=== PATIENT | female | born 1995 | race Caucasian/White ===

== ENCOUNTER 2016-12-18 22:26 | Emergency (ER) | payer OTHER ==
[~2016-12-18] VITALS: Ht 165.1 cm; Wt 108.2 kg
[~2016-12-18 22:26] MED LIST: LEVO1TAB29 PO
[2016-12-18] MEDS ORDERED: SODIUM CHLORIDE 0.9% 1,000ML IVBOLUS ONE (23:00)
[2016-12-18] MEDS ORDERED: SODIUM CHLORIDE FLUSH 10ML SYR IVF ONE (23:00)
[2016-12-18] MEDS ORDERED: MORPHINE SULFATE 4 MG/ML, 1ML IVPush PRN (23:00)
[2016-12-18 23:25] LABS: ASPARTATE AMINO TRANSFERASE 77 U/L (15-37); BLOOD UREA NITROGEN 9 mg/dL (7-18)
[2016-12-19] MEDS ORDERED: OMNIPAQUE 350 MG/ML, 100ML BOTTLE ONE (01:21)
[2016-12-19 02:14] VITALS: BP 112/62
== END 2016-12-19 02:17 | disposition home or self-care (01) ==
LOC: ED 22:47
DX: N83.02 Follicular cyst of left ovary (principal)
CPT/HCPCS: 36415; 74177; 76830; 80053; 81003; 84703; 85025; 96360; 96361; 99285; J7030; Q9967

== ENCOUNTER 2018-01-25 10:47 | Inpatient (IN) | payer OTHER ==
[~2018-01-25] VITALS: Ht 165.1 cm; Wt 108.2 kg
[2018-01-25 11:34] VITALS: BP 161/74
[2018-01-25] MEDS ORDERED: PREN1TAB10 PO (11:58)
[2018-01-25] MEDS ORDERED: ACET-76 PO (11:59)
[2018-01-25 12:03] LABS: MICROSCOPIC INDICATED
[2018-01-25 12:55] LABS: BASOPHILS # (AUTO) 0.02 x10^3/uL (0-0.1); BASOPHILS % (AUTO) 0 % (0-1); EOSINOPHILS # (AUTO) 0.06 x10^3/uL (0-0.4); EOSINOPHILS % (AUTO) 1 % (1-7); LYMPHOCYTES # (AUTO) 1.76 x10^3/uL (1-3.4); LYMPHOCYTES % (AUTO) 22 % (22-44); MD NO; MEAN CORPUSCULAR HGB CONC 33.9 g/dL (32.4-35.8); MEAN CORPUSCULAR VOLUME 94.3 fL (80-100); MEAN PLATELET VOLUME 8.5 fL (7.4-10.4); MONOCYTES # (AUTO) 0.49 x10^3/uL (0.2-0.8); MONOCYTES % (AUTO) 6 % (2-9); NEUTROPHILS # (AUTO) 5.84 x10^3/uL (1.8-6.8); NEUTROPHILS % (AUTO) 71 % (42-75); PLATELET COUNT 300 x10^3/uL (130-400); RED BLOOD COUNT 4.27 x10^6/uL (3.82-5.3); RED CELL DISTRIBUTION WIDTH 14.4 % (9.6-15.2)
[2018-01-25 12:59] LABS: CLUE CELLS NONE SEEN (NONE SEEN); WET PREP WBCS NONE SEEN (FEW)
[2018-01-25 13:05] LABS: CREATININE,URINE RANDOM 88.8 mg/dL
[2018-01-25 13:09] LABS: ALANINE AMINOTRANSFERASE 83 U/L (12-78); ALBUMIN 2.7 g/dL (3.4-5.0); ANION GAP 8 mmol/L (5-15); BILIRUBIN, DIRECT 0.2 mg/dL (0.1-0.2); CALCIUM 9.5 mg/dL (8.5-10.1); CHLORIDE 110 mmol/L (98-107); CREATININE 0.56 mg/dL (0.55-1.02)
[2018-01-25 13:11] LABS: ALKALINE PHOSPHATASE 279 U/L (45-117); BILIRUBIN,TOTAL 0.3 mg/dL (0.2-1.0); TOTAL PROTEIN 7.1 g/dL (6.4-8.2)
[2018-01-25] MEDS ORDERED: OXYTOCIN 30U/ 0.9% NaCL 500ML 500 ML ONE (13:58)
[2018-01-25] MEDS ORDERED: MAGNESIUM SULF. PMX 20GM/500ML 0 ML IV ONE (13:58)
[2018-01-25] MEDS ORDERED: NEWBORN KIT ONE (13:58)
[2018-01-25] MEDS ORDERED: MISOPROSTOL 25 MCG TABLET ONE ×2 (13:59→14:36)
[2018-01-25] MEDS ORDERED: D5%-LACTATED RINGERS 1,000 ML IV SCH (14:26)
[2018-01-25] MEDS ORDERED: OXYTOCIN 30U/ 0.9% NaCL 500ML 500 ML IV ONE (14:26)
[2018-01-25] MEDS ORDERED: MISOPROSTOL 25 MCG TABLET VG PRN (14:30)
[2018-01-25] MEDS ORDERED: SODIUM CITRATE/CITRIC ACID 30 ML UDC PO PRN (14:30)
[2018-01-25] MEDS ORDERED: FENTANYL PF 100 MCG/2ML IVPush PRN (14:30)
[2018-01-25] MEDS ORDERED: TERBUTALINE 1 MG/ML, 1ML IVPush PRN (14:30)
[2018-01-25] MEDS: LACTATED RINGERS 1,000 ML IV SCH (14:53)
[2018-01-25 18:54] LABS: BASOPHILS # (AUTO) 0.09 x10^3/uL (0-0.1); BASOPHILS % (AUTO) 1 % (0-1); EOSINOPHILS # (AUTO) 0.03 x10^3/uL (0-0.4); EOSINOPHILS % (AUTO) 0 % (1-7); LYMPHOCYTES % (AUTO) 20 % (22-44); MD NO; MEAN CORPUSCULAR HEMOGLOBIN 32.5 pg (27.0-34.8); MEAN CORPUSCULAR HGB CONC 34.1 g/dL (32.4-35.8); MEAN CORPUSCULAR VOLUME 95.3 fL (80-100); MEAN PLATELET VOLUME 8.7 fL (7.4-10.4); MONOCYTES # (AUTO) 0.48 x10^3/uL (0.2-0.8); MONOCYTES % (AUTO) 5 % (2-9); NEUTROPHILS # (AUTO) 7.18 x10^3/uL (1.8-6.8); NEUTROPHILS % (AUTO) 73 % (42-75); PLATELET COUNT 286 x10^3/uL (130-400); RED BLOOD COUNT 4.03 x10^6/uL (3.82-5.3); RED CELL DISTRIBUTION WIDTH 14.3 % (9.6-15.2)
[2018-01-25 18:56] LABS: ALBUMIN 2.8 g/dL (3.4-5.0); ANION GAP 9 mmol/L (5-15); CALCIUM 8.8 mg/dL (8.5-10.1); CHLORIDE 108 mmol/L (98-107)
[2018-01-25 18:59] LABS: ALANINE AMINOTRANSFERASE 87 U/L (12-78); ALKALINE PHOSPHATASE 267 U/L (45-117); BILIRUBIN,TOTAL 0.4 mg/dL (0.2-1.0); CREATININE 0.52 mg/dL (0.55-1.02); TOTAL PROTEIN 6.9 g/dL (6.4-8.2)
[2018-01-25] MEDS ORDERED: FENTANYL PF 100 MCG/2ML ONE (20:48)
[2018-01-25] MEDS ORDERED: FENTANYL PF 100 MCG/2ML IV PRN (21:00)
[2018-01-26] MEDS ORDERED: OXYTOCIN 30U/ 0.9% NaCL 500ML 500 ML IV PRN (04:31)
[2018-01-26] MEDS ORDERED: OXYTOCIN 30U/ 0.9% NaCL 500ML 500 ML ONE (04:32)
[2018-01-26 04:54] LABS: BASOPHILS % (AUTO) 0 % (0-1); EOSINOPHILS # (AUTO) 0.06 x10^3/uL (0-0.4); EOSINOPHILS % (AUTO) 1 % (1-7); LYMPHOCYTES # (AUTO) 1.85 x10^3/uL (1-3.4); LYMPHOCYTES % (AUTO) 17 % (22-44); MD NO; MEAN CORPUSCULAR HEMOGLOBIN 32.5 pg (27.0-34.8); MEAN CORPUSCULAR HGB CONC 34.3 g/dL (32.4-35.8); MEAN CORPUSCULAR VOLUME 94.7 fL (80-100); MONOCYTES # (AUTO) 0.43 x10^3/uL (0.2-0.8); MONOCYTES % (AUTO) 4 % (2-9); NEUTROPHILS # (AUTO) 8.62 x10^3/uL (1.8-6.8); NEUTROPHILS % (AUTO) 79 % (42-75); PLATELET COUNT 279 x10^3/uL (130-400); RED BLOOD COUNT 3.96 x10^6/uL (3.82-5.3); RED CELL DISTRIBUTION WIDTH 14.3 % (9.6-15.2)
[2018-01-26 05:07] LABS: ALBUMIN 2.5 g/dL (3.4-5.0); ANION GAP 9 mmol/L (5-15); CALCIUM 8.7 mg/dL (8.5-10.1); CHLORIDE 108 mmol/L (98-107)
[2018-01-26 05:10] LABS: ALANINE AMINOTRANSFERASE 95 U/L (12-78); ALKALINE PHOSPHATASE 249 U/L (45-117); BILIRUBIN,TOTAL 0.6 mg/dL (0.2-1.0); CREATININE 0.57 mg/dL (0.55-1.02); TOTAL PROTEIN 6.4 g/dL (6.4-8.2)
[2018-01-26] MEDS ORDERED: MAGNESIUM SULFATE PMX 4GM/100M 100 ML IVPB ONE (05:30)
[2018-01-26] MEDS ORDERED: CALCIUM GLUCONATE 4.6 MEQ/10 ML IV PRN (05:30)
[2018-01-26] MEDS ORDERED: MAGNESIUM SULF. PMX 20GM/500ML 500 ML IV ONE ×3 (05:32→23:56)
[2018-01-26] MEDS ORDERED: MAGNESIUM SULFATE PMX 4GM/100M 100 ML ONE (05:32)
[2018-01-26] MEDS: LACTATED RINGERS 1,000 ML IV SCH (05:44)
[2018-01-26] MEDS: MAGNESIUM SULF. PMX 20GM/500ML 500 ML IV SCH ×3 (06:21→23:57)
[2018-01-26] MEDS ORDERED: LACTATED RINGERS 1,000 ML IV SCH (12:07)
[2018-01-26] MEDS ORDERED: FENTANYL/BUPIV./NS/PF 250 ML EPIDCONT SCH (12:07)
[2018-01-26] MEDS ORDERED: BUPIVACAINE/PF 0.25% ONE ×2 (12:10→12:13)
[2018-01-26] MEDS ORDERED: FENTANYL/BUPIV./NS/PF 250 ML EPIDCONT ONE (12:13)
[2018-01-26] MEDS ORDERED: NALOXONE 0.4 MG/ML, 1ML IVPush PRN (12:30)
[2018-01-26] MEDS ORDERED: EPHEDRINE 50 MG/ML, 1ML IVPush PRN (12:30)
[2018-01-26] MEDS ORDERED: LACTATED RINGERS 1,000 ML IVBOLUS PRN (12:30)
[2018-01-26] MEDS ORDERED: MISOPROSTOL 200 MCG TABLET ONE (19:05)
[2018-01-26] MEDS ORDERED: LIDOCAINE/PF 1%, 30ML ONE (19:05)
[2018-01-26] MEDS ORDERED: GLYCERIN ADULT SUPP PR PRN (22:00)
[2018-01-26] MEDS ORDERED: IBUPROFEN 600 MG TABLET PO PRN (22:00)
[2018-01-26] MEDS ORDERED: ONDANSETRON 2MG/ML, 2ML IV PRN (22:00)
[2018-01-26] MEDS ORDERED: OXYcodone/APAP 5/325MG TABLET PO PRN ×2 (22:00)
[2018-01-26] MEDS ORDERED: IBUPROFEN 800 MG TABLET PO PRN (22:00)
[2018-01-26] MEDS ORDERED: METOCLOPRAMIDE 5 MG/ML, 2ML IV PRN (22:00)
[2018-01-26] MEDS ORDERED: CARBOPROST TROMETHAMINE 250 MCG/ML, 1ML IM PRN (22:00)
[2018-01-26] MEDS ORDERED: MISOPROSTOL 200 MCG TABLET PR PRN (22:00)
[2018-01-26] MEDS ORDERED: ACETAMINOPHEN 325 MG TABLET PO PRN (22:00)
[2018-01-26] MEDS ORDERED: BISACODYL 10 MG SUPP PR PRN (22:00)
[2018-01-26 22:35] VITALS: BP 118/63
[2018-01-26] MEDS ORDERED: IBUPROFEN 600 MG TABLET ONE (23:50)
[2018-01-27 00:26] VITALS: BP 110/60
[2018-01-27 04:44] LABS: MEAN CORPUSCULAR HEMOGLOBIN 32.3 pg (27.0-34.8); MEAN CORPUSCULAR HGB CONC 33.8 g/dL (32.4-35.8); MEAN CORPUSCULAR VOLUME 95.4 fL (80-100); MEAN PLATELET VOLUME 8.5 fL (7.4-10.4); PLATELET COUNT 289 x10^3/uL (130-400); RED BLOOD COUNT 3.64 x10^6/uL (3.82-5.3); RED CELL DISTRIBUTION WIDTH 14.4 % (9.6-15.2)
[2018-01-27 05:46] LABS: MD YES
[2018-01-27 05:48] LABS: <PLATELET ESTIMATE> ADEQUATE; <PLT MORPHOLOGY> NORMAL PLT MORPH; <RBC MORPHOLOGY> NORMAL; BAND#(MANUAL) 1.35 x10^3/uL; BANDS%(MANUAL) 9 % (0-7); EOS#(MANUAL) 0.15 x10^3/uL (0.0-0.4); EOS% (MANUAL) 1 % (1-7); LYMPHS% (MANUAL) 18 % (22-44); MONOS% (MANUAL) 4 % (2-9); SEGS% (MANUAL) 68 % (42-75); TOXIC GRAN 1+
[2018-01-27 08:37] LABS: ALANINE AMINOTRANSFERASE 124 U/L (12-78); ALBUMIN 2.2 g/dL (3.4-5.0); ANION GAP 9 mmol/L (5-15); CHLORIDE 107 mmol/L (98-107); CREATININE 0.72 mg/dL (0.55-1.02)
[2018-01-27 08:39] LABS: ALKALINE PHOSPHATASE 221 U/L (45-117); BILIRUBIN,TOTAL 0.9 mg/dL (0.2-1.0); TOTAL PROTEIN 5.8 g/dL (6.4-8.2)
[2018-01-27] MEDS: LACTATED RINGERS 1,000 ML IV SCH (11:04)
[2018-01-27] MEDS ORDERED: DOCUSATE 100 MG CAPSULE ONE (11:06)
[2018-01-27] MEDS ORDERED: PRENATAL VIT/IRON/FA 1 EACH TABLET ONE (11:06)
[2018-01-27] MEDS: DOCUSATE 100 MG CAPSULE PO PRN (11:07)
[2018-01-27] MEDS: PRENATAL VIT/IRON/FA 1 EACH TABLET PO SCH (11:07)
[2018-01-27] MEDS ORDERED: MAGNESIUM SULF. PMX 20GM/500ML 500 ML IV ONE (18:27)
[2018-01-27 20:35] VITALS: BP 106/69
[2018-01-27] MEDS: OXYTOCIN 30U/ 0.9% NaCL 500ML 500 ML IV SCH (20:35)
[2018-01-27] MEDS ORDERED: MAGNESIUM SULF. PMX 20GM/500ML 500 ML IV SCH (23:30)
[2018-01-28 02:35] VITALS: BP 103/65
[2018-01-28] MEDS: OXYTOCIN 30U/ 0.9% NaCL 500ML 500 ML IV SCH (03:58)
[2018-01-28 06:30] LABS: BASOPHILS # (AUTO) 0.03 x10^3/uL (0-0.1); BASOPHILS % (AUTO) 0 % (0-1); EOSINOPHILS # (AUTO) 0.09 x10^3/uL (0-0.4); EOSINOPHILS % (AUTO) 1 % (1-7); LYMPHOCYTES # (AUTO) 2.64 x10^3/uL (1-3.4); LYMPHOCYTES % (AUTO) 24 % (22-44); MD NO; MEAN CORPUSCULAR HEMOGLOBIN 32.5 pg (27.0-34.8); MEAN CORPUSCULAR HGB CONC 33.7 g/dL (32.4-35.8); MEAN CORPUSCULAR VOLUME 96.3 fL (80-100); MEAN PLATELET VOLUME 8.5 fL (7.4-10.4); MONOCYTES # (AUTO) 0.68 x10^3/uL (0.2-0.8); MONOCYTES % (AUTO) 6 % (2-9); NEUTROPHILS # (AUTO) 7.65 x10^3/uL (1.8-6.8); NEUTROPHILS % (AUTO) 69 % (42-75); PLATELET COUNT 272 x10^3/uL (130-400); RED BLOOD COUNT 3.32 x10^6/uL (3.82-5.3); RED CELL DISTRIBUTION WIDTH 14.4 % (9.6-15.2)
[2018-01-28 06:40] LABS: ALANINE AMINOTRANSFERASE 87 U/L (12-78); ANION GAP 8 mmol/L (5-15); CALCIUM 8.4 mg/dL (8.5-10.1); CHLORIDE 111 mmol/L (98-107); CREATININE 0.53 mg/dL (0.55-1.02)
[2018-01-28 06:42] LABS: ALKALINE PHOSPHATASE 180 U/L (45-117); BILIRUBIN,TOTAL 0.4 mg/dL (0.2-1.0); TOTAL PROTEIN 5.5 g/dL (6.4-8.2)
[2018-01-28 07:30] VITALS: BP 82/52
[2018-01-28] MEDS: PRENATAL VIT/IRON/FA 1 EACH TABLET PO SCH (07:35)
[2018-01-28] MEDS: DOCUSATE 100 MG CAPSULE PO PRN (07:35)
[2018-01-28 11:41] VITALS: BP 114/66
[2018-01-28] MEDS ORDERED: IBUP-1222 PO (12:48)
== END 2018-01-28 13:33 | disposition home or self-care (01) | DRG 775 ==
LOC: LDOP 10:47 → LDIP 13:35 → 2NE 01-26 23:49 → 2NW 01-28 04:00 → EDSTATUS 01-29 10:47
PROVIDERS: ADMIT Obstetrics & Gynecology; ATTEND Obstetrics & Gynecology
PROC: 10E0XZZ Delivery of Products of Conception, External Approach (ICD-10-PCS; principal; 2018-01-26)
PROC: 0KQM0ZZ Repair Perineum Muscle, Open Approach (ICD-10-PCS; 2018-01-26)
PROC: 3E0P7VZ Introduction of Hormone into Female Reproductive, Via Natural or Artificial Opening (ICD-10-PCS; 2018-01-26)
PROC: 10907ZC Drainage of Amniotic Fluid, Therapeutic from Products of Conception, Via Natural or Artificial Opening (ICD-10-PCS; 2018-01-26)
PROC: 3E0R3BZ Introduction of Anesthetic Agent into Spinal Canal, Percutaneous Approach (ICD-10-PCS; 2018-01-26)
PROC: 00HU33Z Insertion of Infusion Device into Spinal Canal, Percutaneous Approach (ICD-10-PCS; 2018-01-26)
DX: O14.14 Severe pre-eclampsia complicating childbirth (principal); O70.1 Second degree perineal laceration during delivery; O99.214 Obesity complicating childbirth; E66.9 Obesity, unspecified; Z68.39 Body mass index [BMI] 39.0-39.9, adult; Z3A.39 39 weeks gestation of pregnancy; Z37.0 Single live birth
CPT/HCPCS: 36415; 80053; 80074; 81001; 82248; 82570; 83615; 83735; 84112; 84156; 84550; 85025; 86850; 86900; 87210; 87808; J3010; J3490; J2590; J3475; J7120

== ENCOUNTER 2019-06-13 07:08 | Emergency (ER) | payer OTHER ==
[~2019-06-13] VITALS: Ht 165.1 cm; Wt 111.0 kg
[~2019-06-13 07:08] MED LIST changes: +ACET-76 PO; +IBUP-1222 PO; +PREN1TAB10 PO
[2019-06-13] MEDS ORDERED: MORPHINE SULFATE 4 MG/ML, 1ML IVPush PRN (07:30)
[2019-06-13] MEDS ORDERED: SODIUM CHLORIDE FLUSH 10ML SYR IVF ONE (07:30)
[2019-06-13] MEDS ORDERED: ONDANSETRON 2MG/ML, 2ML IVPush ONE (07:30)
--- NOTE | 2019-06-13 07:31 | NUR ---
PATIENT PRESENTS TO ED TODAY FOR SUDDEN ONSET OF LOWER ABD PAIN WITH NAUSEA STARTING AFTER HAVING A BOWEL MOVEMENT TODAY AT 0645. DENIES V/D. FAMILY AT BEDSIDE, LAB AT BEDSIDE, CALL LIGHT WITHIN REACH.
--- NOTE | 2019-06-13 07:36 | NUR ---
PATIENT TO US VIA [facility].
[2019-06-13 07:46] LABS: BASOPHILS # (AUTO) 0.07 x10^3/uL (0-0.1); BASOPHILS % (AUTO) 1 % (0-1); EOSINOPHILS # (AUTO) 0.34 x10^3/uL (0-0.4); EOSINOPHILS % (AUTO) 4 % (1-7); LYMPHOCYTES # (AUTO) 2.72 x10^3/uL (1-3.4); LYMPHOCYTES % (AUTO) 36 % (22-44); MD NO; MEAN CORPUSCULAR HEMOGLOBIN 31.6 pg (27.0-34.8); MEAN CORPUSCULAR HGB CONC 33.1 g/dL (32.4-35.8); MEAN CORPUSCULAR VOLUME 95.6 fL (80-100); MEAN PLATELET VOLUME 8.3 fL (7.4-10.4); MONOCYTES # (AUTO) 0.42 x10^3/uL (0.2-0.8); MONOCYTES % (AUTO) 6 % (2-9); NEUTROPHILS # (AUTO) 4.11 x10^3/uL (1.8-6.8); NEUTROPHILS % (AUTO) 54 % (42-75); PLATELET COUNT 334 x10^3/uL (130-400); RED BLOOD COUNT 4.29 x10^6/uL (3.82-5.3); RED CELL DISTRIBUTION WIDTH 14.2 % (9.6-15.2)
[2019-06-13] MEDS ORDERED: ONDANSETRON 2MG/ML, 2ML ONE (07:52)
[2019-06-13] MEDS ORDERED: MORPHINE SULFATE 4 MG/ML, 1ML ONE (07:53)
[2019-06-13 08:01] LABS: ALBUMIN 3.8 g/dL (3.4-5.0); ANION GAP 9 mmol/L (5-15); CALCIUM 8.3 mg/dL (8.5-10.1); CHLORIDE 108 mmol/L (98-107)
[2019-06-13 08:06] LABS: ALANINE AMINOTRANSFERASE 164 U/L (12-78); ALKALINE PHOSPHATASE 158 U/L (45-117); BILIRUBIN,TOTAL 0.6 mg/dL (0.2-1.0); CREATININE 0.71 mg/dL (0.55-1.02); TOTAL PROTEIN 7.6 g/dL (6.4-8.2)
--- NOTE | 2019-06-13 08:18 | NUR ---
PATIENT BACK FROM US, AMB WITH STEADY GAIT TO BATHROOM, UA COLLECTED AND SENT TO LAB.
[2019-06-13 08:24] VITALS: BP 133/79
--- NOTE | 2019-06-13 08:25 | NUR ---
PATIENT SITTING IN GURNEY, REPORTS PAIN FROM 7/10 TO 4/10 POST PAIN MEDICATIONS, RESP EVEN/UNLABORED, NADN. AWAITING RESULTS.
[2019-06-13 08:37] LABS: MICROSCOPIC INDICATED
[2019-06-13 08:46] LABS: CULTURE INDICATED? YES
--- NOTE | 2019-06-13 08:56 | NUR ---
RESULTS BACK, CHART UP FOR RECHECK.
--- NOTE | 2019-06-13 09:04 | NUR ---
NEW ORDERS FOR CT, PATIENT/FAMILY UPDATED ON POC. NADN.
--- NOTE | 2019-06-13 09:22 | NUR ---
PATIENT BACK FROM CT, A+OX4.
--- NOTE | 2019-06-13 09:24 | NUR ---
PT SNEEZING AFTER CONTRAST GIVEN FOR CT-TOLD PT TO CALL NURSE IF IT DID NOT SUBSIDE SOON
--- NOTE | 2019-06-13 09:59 | NUR ---
REPORT TO ABDIEL RAJPUT.
--- NOTE | 2019-06-13 10:05 | NUR ---
EDUCATED ON COMMON CAUSES OF UTI'S AND HOW TO PREVENT, ALSO INSTRUCTED TO WATCH PHONE SHE MAY RECEIVE A CALL IN A FEW DAYS OR LESS INSTRUCTING HER TO SWITCH ABX APPROPRIATE/ WALKED TO DISCHARGE DESK WITH STEADY GAIT IN THE COMPANY OF FRIEND
[2019-06-13] MEDS ORDERED: OMNIPAQUE 350 MG/ML, 100ML BOTTLE ONE (10:08)
== END 2019-06-13 10:09 | disposition home or self-care (01) ==
LOC: ED 08:20
DX: N30.00 Acute cystitis without hematuria (principal); R10.2 Pelvic and perineal pain
CPT/HCPCS: 36415; 74177; 76830; 80053; 81001; 84703; 85025; 87086; 96374; 96375; 99284; J2270; J2405; Q9967

== ENCOUNTER 2021-02-13 16:28 | Outpatient (CLI) | payer OTHER ==
[~2021-02-13] VITALS: Ht 165.1 cm; Wt 108.8 kg
[2021-02-13 16:43] VITALS: BP 125/74
[2021-02-13 17:14] LABS: MICROSCOPIC INDICATED
[2021-02-13 17:16] LABS: ALANINE AMINOTRANSFERASE 60 U/L (12-78); ALBUMIN 2.6 g/dL (3.4-5.0); ANION GAP 9 mmol/L (5-15); BILIRUBIN, DIRECT 0.2 mg/dL (0.1-0.2); CALCIUM 8.7 mg/dL (8.5-10.1); CHLORIDE 107 mmol/L (98-107); CREATININE 0.48 mg/dL (0.55-1.02)
[2021-02-13 17:17] LABS: CREATININE,URINE RANDOM 37.2 mg/dL
[2021-02-13 17:19] LABS: ALKALINE PHOSPHATASE 233 U/L (45-117); BILIRUBIN,TOTAL 0.4 mg/dL (0.2-1.0); TOTAL PROTEIN 6.8 g/dL (6.4-8.2)
[2021-02-13 18:38] LABS: BASOPHILS % (AUTO) 1 % (0-1); EOSINOPHILS % (AUTO) 1 % (1-7); LYMPHOCYTES % (AUTO) 25 % (22-44); MEAN CORPUSCULAR HEMOGLOBIN 32.3 pg (27.0-34.8); MEAN CORPUSCULAR HGB CONC 34.7 g/dL (32.4-35.8); MONOCYTES % (AUTO) 9 % (2-9); NEUTROPHILS % (AUTO) 64 % (42-75); PLATELET COUNT 269 x10^3/uL (130-400); RED BLOOD COUNT 3.89 x10^6/uL (3.82-5.3); RED CELL DISTRIBUTION WIDTH 14.5 % (9.6-15.2)
== END 2021-02-13 22:53 | disposition home or self-care (01) ==
LOC: LDOP 16:28
PROVIDERS: ATTEND Obstetrics & Gynecology
DX: O16.3 Unspecified maternal hypertension, third trimester (principal); Z3A.34 34 weeks gestation of pregnancy
CPT/HCPCS: 36415; 59025; 80053; 80074; 81001; 82248; 82570; 84156; 84550; 85025

== ENCOUNTER 2021-03-02 11:46 | Outpatient (CLI) | payer OTHER ==
[~2021-03-02] VITALS: Ht 162.6 cm; Wt 107.2 kg
[2021-03-02 12:21] VITALS: BP 128/80
[2021-03-02] MEDS ORDERED: ASPI-963 PO (12:21)
[2021-03-02] MEDS ORDERED: DOCU-131 PO (12:21)
[2021-03-02] MEDS ORDERED: PREN1TAB62 PO (12:21)
== END 2021-03-02 15:32 | disposition home or self-care (01) ==
LOC: LDOP 11:46
PROVIDERS: ATTEND Obstetrics & Gynecology
DX: O26.893 Other specified pregnancy related conditions, third trimester (principal); R10.9 Unspecified abdominal pain; Z3A.36 36 weeks gestation of pregnancy
CPT/HCPCS: 76819; 89060; Q0114

== ENCOUNTER 2021-03-19 21:27 | Outpatient (CLI) | payer OTHER ==
[~2021-03-19] VITALS: Ht 165.1 cm; Wt 109.0 kg
[~2021-03-19 21:27] MED LIST changes: +ASPI-963 PO; +DOCU-131 PO; +PREN1TAB62 PO
[2021-03-19 21:31] VITALS: BP 129/73
[2021-03-19 22:10] VITALS: BP 129/73
== END 2021-03-20 00:05 | disposition home or self-care (01) ==
LOC: LDOP 21:27
PROVIDERS: ATTEND Obstetrics & Gynecology
DX: O26.893 Other specified pregnancy related conditions, third trimester (principal); R10.9 Unspecified abdominal pain; Z3A.39 39 weeks gestation of pregnancy
CPT/HCPCS: 59025